=== PATIENT | female | born 1940 | race Caucasian/White ===

== ENCOUNTER 2016-12-03 07:21 | Day surgery (SDC) | payer MEDICARE ==
[~2016-12-03] VITALS: Ht 167.6 cm; Wt 66.0 kg
[~2016-12-03 07:21] MED LIST: AC500T PO; CALC600T12 PO; CHOL500014 PO; DILT120C PO; ESOM20CA PO; FLX20C; LACTATED RINGERS 1,000 ML IV SCH; LIDOCAINE 4% TOPICAL 4.5 ML SYR ONE; LOSA1TAB69; METO-272 PO; NF-ESOM40C; PROP225C6 PO; PROP225T2 PO; ROPI1TAB2 PO; ROPI2TAB28 PO; ROPI2TAB4; SERT50TA9; SIMETHICONE 40 MG/0.6 ML (MYLICON DROPS) ORAL SYRINGE ONE; SODIUM CHLORIDE FLUSH 3 ML SYR IV PRN; SULF-221 PO; TRAM-291ED; WARF2TAB PO; WARF4TAB PO; WRF1T PO
[2016-12-03 07:46] VITALS: BP 115/63
[2016-12-03] MEDS ORDERED: ALFENTANIL 500 MCG/ML (ALFENTA) 5 ML AMP IV ONE (08:19)
[2016-12-03] MEDS ORDERED: PROPOFOL 20 ML IV ONE ×2 (08:19)
[2016-12-03] MEDS ORDERED: MIDAZOLAM 2 MG/2 ML (VERSED) VIAL ONE (08:19)
[2016-12-03 09:57] VITALS: BP 107/63
[2016-12-03 10:26] VITALS: BP 107/55
--- NOTE | 2016-12-03 10:56 | OPERATIVE REPORT ---
DATE OF OPERATION: 12/03/2016 PRE-OPERATIVE DIAGNOSIS: 1. Anemia. 2. Chronic anticoagulation. POST-OPERATIVE DIAGNOSIS: 1. Gastric ulcer. 2. Normal colonoscopy. OPERATIVE PROCEDURE: 1. Esophagogastroduodenoscopy with biopsies. 2. Total colonoscopy SURGEON: Craig Jimenez MD ANESTHESIA: Monitored anesthesia care FINDINGS: 1. Within the antrum near the pylorus there is a small linear ulcer seen. This was photographed and biopsied. Biopsies were also taken for ALPESH from the antrum. Path is pending. 2. The esophagus and duodenum appeared normal without any inflammation, ulcers or neoplasia. 3. The bowel prep was good. 4. No neoplasia, angiodysplasia, diverticula or inflammation were seen in the colon or rectum. INDICATIONS: The patient is a 76-year-old referred by Dr. Vega with anemia of undetermined origin. Results were anticoagulated for proximal atrial fibrillation. She comes in today off her Coumadin and with an INR of 1.1 for upper and lower endoscopy. DESCRIPTION OF PROCEDURE: The patient was informed of the risks and benefits and agreed to proceed. Her oropharynx was anesthetized with Xylocaine. A bite block was placed. Sedation was administered and the lighted endoscope was passed down the esophagus and into the stomach. Air was insufflated. The pylorus was cannulated and the first, second and third portions of the duodenum were visualized. No inflammation, ulcers or neoplasia were seen there. There is no evidence of recent bleeding. The scope was brought back into the stomach where the antrum was inspected. This linear ulcer was seen, photographed and biopsied. There was no visible vessel or sequelae of recent bleeding seen. The fundus and body of the stomach appeared normal and no other ulcers or inflammation were seen there. The cardia appeared normal as well, except for the previous wrap, which appeared to be still intact, but with evidence that there was some recurrence of the hiatal hernia. The scope was brought up to the diaphragmatic hiatus at 38 cm and the squamocolumnar junction was seen at 35 cm. This was intact without any inflammatory change. The distal and proximal esophagus appeared normal. The scope was removed completing this portion of the procedure. Attention was then turned to the colonoscopy. A digital rectal exam was performed, which was normal. The lighted endoscope was passed into the rectum and slowly advanced along the colon to the cecum. The ileocecal valve and the appendiceal orifice were seen, though the valve was diminutive and not obvious at first. The scope was slowly withdrawn though the ascending, transverse, descending, and sigmoid colon. No polyps or neoplasia were seen. There was no inflammation. The rectum appeared normal on regular view and retroflexion. The scope was removed completing the procedure. The patient tolerated the procedure without complications. I will have her start taking Carafate 1 gm 4 times a day, along with the Nexium 40 mg that she is already taking and I will see her back in the clinic next week to go over the results. We will also check her H. pylori results at that time.
== END 2016-12-03 10:40 | disposition home or self-care (01) ==
LOC: ASC 07:21
PROVIDERS: ATTEND Surgery
DX: Z12.11 Encounter for screening for malignant neoplasm of colon (principal); D64.9 Anemia, unspecified; K25.7 Chronic gastric ulcer without hemorrhage or perforation; Z79.01 Long term (current) use of anticoagulants; I10 Essential (primary) hypertension; R06.02 Shortness of breath; Z95.2 Presence of prosthetic heart valve
CPT/HCPCS: 36415; 43239; 85610; 87077; 88305; 88312; A9270; G0121; J2250; J7120

== ENCOUNTER → 2016-12-16 | Outpatient (CLI) | payer MEDICARE | LOC: LAB 12:23 | PROVIDERS: ATTEND Surgery | DX: K25.9 Gastric ulcer, unspecified as acute or chronic, without hemorrhage or perforation (principal) | CPT/HCPCS: 36415; 85018 ==

== ENCOUNTER → 2016-12-29 | Outpatient (REF) | payer MEDICARE ==
[2016-12-29 11:56] LABS: BASOPHILS % (AUTO) 1 % (0-2); EOSINOPHILS # (AUTO) 0.2 10^3uL; EOSINOPHILS % (AUTO) 5 % (0-4); LYMPHOCYTES # (AUTO) 0.6 X10^3; MEAN CORPUSCULAR HGB CONC 32.7 g/dL (31.0-37.0); MEAN CORPUSCULAR VOLUME 82 FL (80-100); MEAN PLATELET VOLUME 8.7 FL (6.0-9.5); MONOCYTES # (AUTO) 0.6 X10^3; MONOCYTES % (AUTO) 13 % (3-11); NEUTROPHILS # (AUTO) 2.9 X10^3; NEUTROPHILS % (AUTO) 68 % (51-67); PLATELET COUNT 174 10^3uL (150-450); WHITE BLOOD COUNT 4.27 10^3uL (4.0-11.0)
[2016-12-29 12:02] LABS: MEAN CORPUSCULAR HEMOGLOBIN 26.9 PG (26.0-34.0)
[2016-12-29 17:39] LABS: IRON 26 ug/dL (50-170)
== END ==
LOC: LAB 11:44
PROVIDERS: ATTEND Family Medicine
DX: D62 Acute posthemorrhagic anemia (principal); I48.0 Paroxysmal atrial fibrillation; I07.1 Rheumatic tricuspid insufficiency
CPT/HCPCS: 82728; 83540; 85025; 85610

== ENCOUNTER → 2017-02-25 | Outpatient (CLI) | payer MEDICARE ==
[~2017-02-25] MED LIST changes: -LACTATED RINGERS 1,000 ML IV SCH; -LIDOCAINE 4% TOPICAL 4.5 ML SYR ONE; -SIMETHICONE 40 MG/0.6 ML (MYLICON DROPS) ORAL SYRINGE ONE; -SODIUM CHLORIDE FLUSH 3 ML SYR IV PRN
== END ==
LOC: LAB 07:27
PROVIDERS: ATTEND Family Medicine
DX: E61.1 Iron deficiency (principal); D62 Acute posthemorrhagic anemia
CPT/HCPCS: 36415; 83540

== ENCOUNTER 2017-03-03 09:00 | Outpatient (RCR) | payer MEDICARE ==
[2017-03-03] MEDS ORDERED: NS FLUSH 10 ML PRN IV (09:05)
[2017-03-03] MEDS ORDERED: IRON SUCROSE 200 MG in NORMAL SALINE 150 ML IV ONE (09:05)
[2017-03-03] MEDS ORDERED: NS FLUSH 3 ML PRN IV (09:05)
[2017-03-03 09:30] VITALS: BP 137/76
--- NOTE | 2017-03-03 10:33 | NUR ---
Pt arrived o unit 0915. VS in ED 98.2 temp, 20 resp, 87 pulse, 92% on RA, 154/109 B/P. IV was started in ED Right forearm 22 gauge.
--- NOTE | 2017-03-03 11:15 | NUR ---
Iv dc'd with infusion completed. VS P 71 151/84 98%. Pt states she is already feeling better.
--- NOTE | 2017-03-03 11:20 | NUR ---
Pt dismissed to home via w/c accompanied by OB staff and .
[2017-03-17] MEDS ORDERED: IRON SUCROSE 200 MG in NORMAL SALINE 150 ML IV ONE (09:20)
[2017-03-17] MEDS ORDERED: ADENOSINE 6 MG/2 ML (ADENOCARD) VIAL IV ONE (09:41)
[2017-03-17] MEDS ORDERED: MULT1CAP27 PO (10:25)
[2017-03-17] MEDS ORDERED: DILT120C10 PO (11:39)
== END 2017-04-27 18:31 | disposition home or self-care (01) ==
LOC: EUOP 09:11 → OB 09:11 → EUOP 03-17 09:13
PROVIDERS: ATTEND Family Medicine
DX: D50.8 Other iron deficiency anemias (principal)
CPT/HCPCS: J1756; J7050; 96365; 96366

== ENCOUNTER 2017-03-17 09:51 | Emergency (ER) | payer MEDICARE ==
[~2017-03-17] VITALS: Ht 167.6 cm; Wt 65.5 kg
[2017-03-17] MEDS ORDERED: ADENOSINE 6 MG/2 ML (ADENOCARD) VIAL IV ONE ×4 (09:55→10:25)
[2017-03-17] MEDS ORDERED: DILTIAZEM 25 MG/5 ML (CARDIZEM) VIAL ONE (10:04)
[2017-03-17] MEDS ORDERED: DILTIAZEM 25 MG/5 ML (CARDIZEM) VIAL IV ONE (10:25)
[2017-03-17] MEDS ORDERED: MULT1CAP27 PO (10:25)
[2017-03-17 10:47] LABS: BASOPHILS % (AUTO) 1 % (0-2); EOSINOPHILS # (AUTO) 0.1 10^3uL; EOSINOPHILS % (AUTO) 2 % (0-4); LYMPHOCYTES # (AUTO) 0.7 X10^3; MEAN CORPUSCULAR HEMOGLOBIN 29.4 PG (26.0-34.0); MEAN CORPUSCULAR HGB CONC 32.5 g/dL (31.0-37.0); MEAN CORPUSCULAR VOLUME 90 FL (80-100); MEAN PLATELET VOLUME 9.2 FL (6.0-9.5); MONOCYTES # (AUTO) 0.8 X10^3; MONOCYTES % (AUTO) 12 % (3-11); NEUTROPHILS # (AUTO) 4.5 X10^3; NEUTROPHILS % (AUTO) 74 % (51-67); PLATELET COUNT 159 10^3uL (150-450); WHITE BLOOD COUNT 6.11 10^3uL (4.0-11.0)
[2017-03-17 10:57] LABS: ALBUMIN 3.1 g/dL (3.4-5.0); ALKALINE PHOSPHATASE 95 U/L (38-126); ANION GAP 10.7 MEQ/L (3-15); BUN/CREATININE RATIO 42 (10-20); CALCULATED IONIZED CALCIUM 3.9 mg/dL (3.8-4.6); TOTAL PROTEIN 5.8 g/dL (6.4-8.5)
--- NOTE | 2017-03-17 11:05 | NUR ---
Pt arrived in ED as EUOP for infusion. After obtaining VS and noting pulse of 176 Pt was changed to ED status. First IV was 18g started in left wrist at 0935. Second IV was 20g started in right forearm at 0954. Adenosine was administered 3 times, 6mg, 6mg, then 12mg, with little result, Cardizem 25mg was administered which brought pulse down to 88bpm. Pt will be transfered.
--- NOTE | 2017-03-17 11:19 | NUR ---
DR ADAMS CALLED/PAGED BY DR ELOY MELGAR PT. CL
[2017-03-17] MEDS ORDERED: DILT120C10 PO (11:39)
[2017-03-17 12:10] VITALS: BP 95/42
== END 2017-03-17 12:08 | disposition home or self-care (01) ==
LOC: ED 09:53
DX: R00.0 Tachycardia, unspecified (principal); Z95.2 Presence of prosthetic heart valve
CPT/HCPCS: 36415; 80053; 84484; 85025; 85610; 93005; 96374; 96375; 99285; J0153; 93010